=== PATIENT | female | born 1990 ===

== ENCOUNTER 2023-08-25 11:21 | Outpatient (REF) | payer MEDICAID, SELFPAY ==
--- NOTE | 2023-08-25 11:00 | PAPFT_PTH ---
PATIENT: Joya Silverio LOC: [facility]#:[id number] AGE/SX: 33/F ROOM: RE08/25/[address]: Len Mathews : 1990 BED: DIS: 08/25/2023 SPEC #: [id number] RECD: 08/29/23 13:23 STATUS: KATHIE RELeonid #: [id number] STEPHEN: 08/25/23 11:[address]: Len Mathews DEPT: [facility] Cytology RECD BY: Nilam Pearl ENTERED: 08/29/23 13:24 SP TYPE: PAPFT OTHR DR: Unknown,Unknown Tissues: 1 - CX/ENDOCX FOR PAP SMEARS Procedures: PAP THIN PREP/[facility] Screening Comments: [id number] (CHLAMYDIA/GC)
[2023-08-30 14:47] LABS: Chlamydia Result Negative (Negative); GC Result Negative (Negative)
== END 2023-08-25 11:22 | disposition home or self-care (01) ==
LOC: NCHCN 11:21
PROVIDERS: Visit Provider Naturopath
DX: Z11.51 Encounter for screening for human papillomavirus (HPV); Z01.419 Encounter for gynecological examination (general) (routine) without abnormal findings
CPT/HCPCS: 87491; 87591; 88142